=== PATIENT | male | born 1970 | race Caucasian/White ===

== ENCOUNTER 2022-03-08 09:42 | Inpatient (IN) ==
[2022-03-08] MEDS ORDERED: DILTIAZEM 25 MG/5 ML VIAL IV ONE (09:57)
[2022-03-08] MEDS ORDERED: DILTIAZEM 100 MG VIAL.ADD IV ONE (09:57)
[2022-03-08] MEDS ORDERED: DILTIAZEM INJ 100 MG in SODIUM CHLORIDE 0.9% 100 ML IV SCH ×2 (10:00→10:30)
[2022-03-08] MEDS ORDERED: DILTIAZEM 25 MG/5 ML VIAL IV STA ×2 (10:06→10:20)
[2022-03-08 10:14] LABS: Basophils % 0.3 % (0.0-0.8); Eosinophils # 0.1 10*3/uL (0.0-0.87); Hematocrit 45.7 VOL% (42.0-52.0); Hemoglobin 14.7 GM/DL (14.0-18.0); Immature Granulocytes % 0.3 %; Immature Granulocytes Absolute 0.02 #; Lymphocytes # 1.2 10*3/uL (1.4-4.0); Mean Corpuscular HGB Conc 32.2 GM/DL (32-36); Mean Corpuscular Volume 89.8 FL (87-102); Mean Platelet Volume 11.8 FL (9.6-12.0); Monocytes # 0.5 10*3/uL (0.11-0.8); Monocytes % 7.6 % (1.7-12.7); Neutrophils % 73.8 % (38.7-73.9); Platelet Count 187 T/CUMM (130-400); Red Blood Count 5.09 MC/CUMM (3.8-5.5); Red Cell Distribution Width 12.9 % (9.3-17.3); White Blood Count 6.8 T/CUMM (4-12)
[2022-03-08 10:21] LABS: INR 1.1; PT Patient Result 12.1 SECS (10.1-12.1); Partial Thromboplastin Time 28.7 SECS (23.7-32.9)
[2022-03-08 10:37] LABS: Albumin 3.8 G/DL (3.4-5.0); Bilirubin,Total 0.5 MG/DL (0.20-1.00); Calcium 9.4 MG/DL (8.5-10.1); Potassium 4.5 MMOL/L (3.5-5.1); Thyroid Stimulating Hormone 1.14 uIU/ml (0.358-3.74); Total Protein 6.6 G/DL (6.4-8.2)
[2022-03-08] MEDS ORDERED: ALUMINUM/MAGNES/SIMETH MAX STR 30 ML UDCUP PO PRN (11:29)
[2022-03-08] MEDS ORDERED: ZALEPLON 5 MG CAPSULE PO PRN (11:29)
[2022-03-08] MEDS ORDERED: BISACODYL 5 MG TABLET PO PRN (11:29)
[2022-03-08] MEDS ORDERED: ONDANSETRON 4 MG/2 ML VIAL IV PRN (11:29)
[2022-03-08] MEDS ORDERED: FUROSEMIDE 40 MG/4 ML VIAL IV ONE (11:31)
[2022-03-08] MEDS: APIXABAN 5 MG TABLET PO SCH ×2 (12:24→21:08)
[2022-03-08] MEDS ORDERED: METOPROLOL TARTRATE 5 MG/5 ML VIAL IV STA (12:54)
[2022-03-08] MEDS ORDERED: ENOXAPARIN 120 MG/0.8 ML SYRINGE SUBCUT STA (14:33)
[2022-03-08] MEDS: SOTALOL 80 MG TABLET PO SCH ×2 (15:14→21:07)
[2022-03-08] MEDS: INSULIN LISPRO 100 UNIT/ML SUBCUT SCH ×2 (16:32→20:45)
[2022-03-08] MEDS: DILTIAZEM INJ 100 MG in SODIUM CHLORIDE 0.9% 100 ML IV SCH ×2 (16:52→22:30)
[2022-03-08] MEDS ORDERED: METOPROLOL TARTRATE 25 MG TABLET PO SCH (21:00)
[2022-03-08] MEDS: ATORVASTATIN 20 MG TABLET PO SCH (21:08)
[2022-03-08] MEDS: ASCORBIC ACID 500 MG TABLET PO SCH (21:08)
[2022-03-09 01:00] LABS: Basophils % 0.3 % (0.0-0.8); Eosinophils # 0.1 10*3/uL (0.0-0.87); Eosinophils % 1.6 % (0.00-10.9); Hematocrit 41.3 VOL% (42.0-52.0); Hemoglobin 13.5 GM/DL (14.0-18.0); Immature Granulocytes % 0.4 %; Immature Granulocytes Absolute 0.03 #; Lymphocytes # 1.5 10*3/uL (1.4-4.0); Lymphocytes % 19.3 % (21.2-54.2); Mean Corpuscular HGB Conc 32.7 GM/DL (32-36); Mean Corpuscular Volume 87.1 FL (87-102); Monocytes # 0.6 10*3/uL (0.11-0.8); Monocytes % 7.4 % (1.7-12.7); Platelet Count 201 T/CUMM (130-400); Red Blood Count 4.74 MC/CUMM (3.8-5.5); Red Cell Distribution Width 13.2 % (9.3-17.3); White Blood Count 7.5 T/CUMM (4-12)
[2022-03-09 01:35] LABS: Calcium 8.6 MG/DL (8.5-10.1); Osmolality,Calculated 285.3 MOS/KG (273-304); Potassium 3.5 MMOL/L (3.5-5.1)
[2022-03-09 01:40] LABS: Risk Ratio 2.79; VLDL Cholesterol 21.8 MG/DL
[2022-03-09] MEDS ORDERED: ACETAMINOPHEN 325 MG TABLET PO PRN (08:28)
[2022-03-09] MEDS: SOTALOL 80 MG TABLET PO SCH ×2 (08:39→20:50)
[2022-03-09] MEDS: ASCORBIC ACID 500 MG TABLET PO SCH ×2 (08:39→20:50)
[2022-03-09] MEDS: PANTOPRAZOLE 40 MG TABLET PO SCH (08:39)
[2022-03-09] MEDS: ASPIRIN EC 81 MG TABLET PO SCH (08:39)
[2022-03-09] MEDS: FLUoxetine 20 MG CAPSULE PO SCH (08:39)
[2022-03-09] MEDS: APIXABAN 5 MG TABLET PO SCH ×2 (08:40→20:50)
[2022-03-09] MEDS: INSULIN LISPRO 100 UNIT/ML SUBCUT SCH ×4 (08:44→20:50)
[2022-03-09] MEDS ORDERED: lisinopriL 20 MG TABLET PO SCH (09:00)
[2022-03-09] MEDS ORDERED: POTASSIUM CHLORIDE 20 MEQ TABLET PO ONE (11:47)
[2022-03-09] MEDS: lisinopriL 20 MG TABLET PO SCH (12:12)
[2022-03-09] MEDS: DILTIAZEM INJ 100 MG in SODIUM CHLORIDE 0.9% 100 ML IV SCH ×3 (12:13→23:55)
[2022-03-09] MEDS: ATORVASTATIN 20 MG TABLET PO SCH (20:50)
[2022-03-09] MEDS: FLUTICASONE 50 MCG NASAL SPRAY 16 GM BOTTLE BOTH NARES SCH (22:00)
[2022-03-10] MEDS ORDERED: DILTIAZEM INJ 100 MG in SODIUM CHLORIDE 0.9% 100 ML IV SCH (05:05)
[2022-03-10 05:42] LABS: Albumin 3.3 G/DL (3.4-5.0); Bilirubin,Total 0.7 MG/DL (0.20-1.00); Calcium 8.6 MG/DL (8.5-10.1); Osmolality,Calculated 288.1 MOS/KG (273-304); Potassium 3.8 MMOL/L (3.5-5.1)
[2022-03-10] MEDS ORDERED: MIDAZOLAM 10 MG/2 ML VIAL ONE (08:00)
[2022-03-10] MEDS ORDERED: MIDAZOLAM 2 MG/2 ML VIAL IV ONE (08:00)
[2022-03-10] MEDS: INSULIN LISPRO 100 UNIT/ML SUBCUT SCH (09:10)
[2022-03-10] MEDS: ASPIRIN EC 81 MG TABLET PO SCH (11:00)
[2022-03-10] MEDS: PANTOPRAZOLE 40 MG TABLET PO SCH (11:00)
[2022-03-10] MEDS: APIXABAN 5 MG TABLET PO SCH (11:00)
[2022-03-10] MEDS: SOTALOL 80 MG TABLET PO SCH (11:01)
[2022-03-10] MEDS: ASCORBIC ACID 500 MG TABLET PO SCH (11:01)
[2022-03-10] MEDS: lisinopriL 20 MG TABLET PO SCH (11:01)
[2022-03-10] MEDS: FLUoxetine 20 MG CAPSULE PO SCH (11:02)
[2022-03-10] MEDS: FLUTICASONE 50 MCG NASAL SPRAY 16 GM BOTTLE BOTH NARES SCH (11:03)
[2022-03-10 12:42] VITALS: BP 132/89
== END 2022-03-10 13:50 | disposition home or self-care (01) | DRG 308 ==
LOC: N.EDINP 09:42 → N.ED 09:42 → N.EDINP 21:56 → N.TELEN 03-09 00:20
PROVIDERS: ADMIT Internal Medicine Cardiovascular Disease; ATTEND Internal Medicine Cardiovascular Disease